=== PATIENT | male | born 1970 | race Caucasian/White ===

== ENCOUNTER → 2020-06-16 11:12 | Outpatient (BNVA) | payer OTHER, SELFPAY | PROVIDERS: PCP Family Medicine; Visit Provider Internal Medicine Rheumatology | DX: M45.9 Ankylosing spondylitis of unspecified sites in spine (principal); M19.90 Unspecified osteoarthritis, unspecified site; M77.9 Enthesopathy, unspecified; Z79.899 Other long term (current) drug therapy; Z96.652 Presence of left artificial knee joint | CPT/HCPCS: 99204 ==

== ENCOUNTER 2020-06-29 12:09 | Outpatient (CLI) | payer OTHER, SELFPAY ==
--- NOTE | 2020-06-29 12:27 | XR_ITS ---
WS: [id number] Cervical spine, 3 views, 06/29/2020 Clinical Data: Z79.899 - Other group home (current) drug therapy Comparison: None. Findings: No compression fractures are seen. The disc heights are normal. There is no prevertebral so ft tissue swelling. The odontoid is unremarkable. There is osteoarthritic change of the C4, C5 and C6 vertebra. There are clips in the tracheal region from surgery. The lung apices are normal. XR/XR cervical spine 3V* 37313 Impression: 1. Osteoarthritis of C4-C6. 2. Probable thyroid surgery.
--- NOTE | 2020-06-29 12:27 | XR_ITS ---
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 Findings: No compression fractures or subluxation is seen. No disc space narrowing is seen. Transverse processe s are normal. There are anterior calcifications of the longitudinal ligaments extending from the lumb ar spine into thoracic spine. The SI joints are not visualized. The patient could have ankylosing spo ndylitis. XR/XR lumbar spine 2-3V* [id number] Impression: Possible ankylosing spondylitis.
--- NOTE | 2020-06-29 12:27 | XR_ITS ---
WS: [id number] Right hand, 3 views, 06/29/2020 Clinical Data: Z79.899 - Other nursing home (current) drug therapy Comparison: None. Findings: No fractures or dislocations are seen. The soft tissues are unremarkable. The joint space s are normal No periarticular demineralization or calcification is seen. XR/XR hand RT min 3V* [id number] Impression: Negative right hand.
--- NOTE | 2020-06-29 12:27 | XR_ITS ---
WS: [id number] Pelvis, AP view, 06/29/2020 Clinical Data: Z79.899 - Other alf (current) drug therapy Comparison: None. Findings: No fractures or dislocations are seen. The SI joints are not visualized and may be sclerosed. The sof t tissues are not remarkable. The hips are normal. XR/XR pelvis 1-2V* [id number] Impression: Possible sclerosis of the SI joints can be seen with sacroiliitis.
--- NOTE | 2020-06-29 12:27 | XR_ITS ---
WS: [id number] Left hand, 3 views, 06/29/2020 Clinical Data: Z79.899 - Other retirement (current) drug therapy Comparison: None. Findings: No fractures or dislocations are seen. The soft tissues are unremarkable. The joint spaces are normal No periarticular demineralization or calcification is seen. XR/XR hand LT min 3V* [id number] Impression: Negative left hand.
--- NOTE | 2020-06-29 12:27 | XR_ITS ---
WS: [id number] Left foot, 3 views, 06/29/2020 Clinical Data: Z79.899 - Other [facility] (current) drug therapy Comparison: None. Findings: No fractures or dislocations are seen. No bone destruction or erosion is noted. There is a bunion at the head of the left first metatarsal.There is a plantar spur and an Achilles spur. No periarticular demineralization or calcifications are seen. XR/XR foot LT min 3V* [id number] Impression: Bunion of the head of the left first metatarsal.
--- NOTE | 2020-06-29 12:27 | XR_ITS ---
WS: [id number] Right foot, 3 views, 06/29/2020 Clinical Data: Z79.899 - Other [facility] (current) drug therapy Comparison: None. Findings: No fractures or dislocations are seen. No bone destruction or erosion is noted. There is a bunion at the head of the right first metatarsal.There is a plantar spur. No periarticular demineralization or calcifications are seen. XR/XR foot RT min 3V* 73753 Impression: Bunion at the head of the right first metatarsal.
[2020-06-29 13:47] LABS: Basophils # 0.1 10^3/uL (0.0-0.1); Basophils % 0.8 %; Eosinophils # 0.3 10^3/uL (0.0-0.8); Eosinophils % 2.4 %; Hematocrit 39.3 % (42.0-52.0); Hemoglobin 12.3 g/dL (11.7-16.6); Lymphocytes # 3.6 10^3/uL (0.8-4.8); Lymphocytes % 29.2 %; Mean Corpuscular HGB Conc 31.3 g/dL (30.0-36.0); Mean Corpuscular Hemoglobin 25.7 pg (28.0-34.0); Mean Corpuscular Volume 82.2 fL (80-94); Mean Platelet Volume 9.9 fL (7.4-10.4); Monocytes # 1.1 10^3/uL (0.2-0.9); Neutrophils % 57.7 %; Nucleated Red Blood Cells % 0 %; Platelet Count 374 10^3/cmm (130-400); Red Blood Count 4.78 10^6/uL (4.1-5.3); Red Cell Distribution Width 15.5 % (12.1-15.1); White Blood Count 12.3 10^3/uL (4.0-10.0)
[2020-06-29 14:44] LABS: Hepatitis B Core AB, Total Non-Reactive (Nonreactive); Hepatitis B Surface Antigen Non-Reactive (Nonreactive); Hepatitis C Virus Antibody Non-Reactive (Nonreactive)
[2020-06-29 14:51] LABS: Alanine Aminotransferase 15 U/L (0-41); Albumin Level 3.6 g/dL (3.5-5.2); Alkaline Phosphatase 76 IU/L (40-130); Aspartate Amino Transferase 16 U/L (0-40); C Reactive Protein 22.2 mg/L (0.0-4.9); Globulin 3.6 g/dL (1.3-4.6); Glomerular Filtration Rate 79.1 mL/min (90-130); Total Bilirubin 0.2 mg/dL (0.15-1.2); Total Protein 7.2 g/dL (6.6-8.7)
[2020-06-29 15:18] LABS: Erythrocyte Sedimentation Rate 36 mm/hr (0-10)
[2020-06-29 15:20] LABS: 25 Hydroxy Vitamin D 21 ng/mL (30-100)
[2020-06-30 13:12] LABS: Cyclic Citrullinated Peptide <16 UNITS
[2020-07-01 13:57] LABS: Quantiferon Nil 0.02 IU/mL; Quantiferon Plus TB1 0.01 IU/mL; Quantiferon Plus TB2 0.01 IU/mL; Quantiferon TB Gold NEGATIVE (NEGATIVE)
[2020-07-02 13:37] LABS: HLA-B27 POSITIVE (NEGATIVE)
== END 2020-06-29 12:10 | disposition home or self-care (01) ==
PROVIDERS: PCP Family Medicine; Visit Provider Internal Medicine Rheumatology
DX: M19.90 Unspecified osteoarthritis, unspecified site (principal); M45.9 Ankylosing spondylitis of unspecified sites in spine; Z79.899 Other long term (current) drug therapy; Z11.59 Encounter for screening for other viral diseases; Z11.1 Encounter for screening for respiratory tuberculosis
CPT/HCPCS: 36415; 72040; 72100; 72170; 73130; 73630; 80076; 82306; 82565; 85025; 85651; 86140; 86431; 86480; 86704; 86803; 86812; 87340